=== PATIENT | male | born 1990 | race African-American/Black ===

== ENCOUNTER 2023-06-14 15:41 | Emergency (ER) | payer MEDICAID ==
[~2023-06-14] VITALS: Ht 185.4 cm; Wt 90.9 kg
[2023-06-14] MEDS: ONDANSETRON HCL 4 MG/2 ML VIAL IVP ONE (16:15)
[2023-06-14] MEDS: HYDROmorphone HCL 2 MG/ML SYRINGE IVP ONE (16:15)
[2023-06-14 17:11] LABS: BASOPHILS % (AUTO) 0.3 % (0.0-2.0); EOSINOPHILS % (AUTO) 0.7 % (1.0-6.0); HEMATOCRIT 41.2 % (41-53); HEMOGLOBIN 13.4 g/dL (13.5-17.5); LYMPHOCYTES # (AUTO) 1.4 K/uL (1.0-4.8); LYMPHOCYTES % (AUTO) 10.2 % (22.0-44.0); MEAN CORPUSCULAR HEMOGLOBIN 29.7 pg (26.0-34.0); MEAN CORPUSCULAR HGB CONC 32.5 G/dL (31.0-37.0); MEAN CORPUSCULAR VOLUME 91 fL (80-100); MONOCYTES # (AUTO) 0.8 K/uL (0.1-1.0); MONOCYTES % (AUTO) 5.7 % (2.0-9.0); NEUTROPHILS # (AUTO) 11.8 K/uL (1.8-7.7); NEUTROPHILS % (AUTO) 83.1 % (40.0-70.0); PLATELET COUNT (AUTO) 309 K/uL (150-450); RED BLOOD CELL COUNT(AUTO) 4.51 MIL/uL (4.50-5.90); RED CELL DISTRIBUTION WIDTH 15.1 % (11.5-14.5); WHITE BLOOD COUNT (AUTO) 14.2 K/uL (4.5-11.0)
[2023-06-14] MEDS: ETOMIDATE 2 MG/ML 10 ML VIAL IVP ONE (17:11)
[2023-06-14 17:20] VITALS: TEMP 98.4
[2023-06-14 17:21] LABS: ANION GAP 10 mmol/L (8-16); CALCIUM, TOTAL 8.9 mg/dL (8.8-10.5); CARBON DIOXIDE 28 mmol/L (22-29); CHLORIDE 104 mmol/L (98-107); CREATININE 1.26 mg/dL (0.60-1.30); GLOMERULAR FILTR. RATE CALC > 60 mL/min (>60); GLUCOSE,RANDOM 73 mg/dL (70-110); POTASSIUM 3.6 mmol/L (3.5-5.1); SODIUM SERUM 142 mmol/L (136-145); UREA NITROGEN, BLOOD 16 mg/dL (7-18)
[2023-06-14 17:26] LABS: ALCOHOL, BLOOD (SERUM) < 3 mg/dL (0-10)
[2023-06-14 18:09] VITALS: O2SAT 98
[2023-06-14 19:21] VITALS: BP 130/56; PULSE 80; RESP 14
[2023-06-14] MEDS ORDERED: ACET-2080 PO (21:34)
[2023-06-14] MEDS ORDERED: IBUP-1554 PO (21:34)
[2023-06-14] MEDS: ACETAMINOPHEN/CODEINE 300-30 MG TABLET PO ONE (21:36)
[2023-06-14] MEDS: KETOROLAC TROMETHAMINE 30 MG/ML VIAL IVP ONE (21:36)
== END 2023-06-14 22:09 | disposition home or self-care (01) ==
LOC: EMS 15:42
DX: S42.402A Unspecified fracture of lower end of left humerus, initial encounter for closed fracture (principal); S53.105A Unspecified dislocation of left ulnohumeral joint, initial encounter; X58.XXXA Exposure to other specified factors, initial encounter; Y93.89 Activity, other specified; Y92.89 Other specified places as the place of occurrence of the external cause; Y99.8 Other external cause status
CPT/HCPCS: 24655; 80048; 85025; 36415; 73070; 73080; 73090; 73130; 73200; 99285; 96374; 96375; G0480; J3490; J1170; J1885; J2405; 24600